=== PATIENT | female | born 1970 | race Caucasian/White ===

== ENCOUNTER 2020-08-15 15:24 | Outpatient (CLI) | payer BC, SELFPAY ==
--- NOTE | ~2020-08-15 | MM_ITS ---
EXAMINATION: MM screening [facility] BI w kristie HISTORY: Screening mammogram TECHNIQUE: Craniocaudal and mediolateral oblique 3-D tomosynthesis images were obtained and synthetic 2-D images were generated. CAD analysis was submitted and interpreted. COMPARISON: 01/14/2018, 12/16/2013, 10/07/2012 BREAST PARENCHYMAL COMPOSITION: The breasts are heterogeneously dense, which may obscure small masses . FINDINGS: There is no evidence of suspicious mass, calcification, or architectural distortion to sugg est malignancy in either breast. There has been no suspicious interval change. IMPRESSION: 1. No mammographic evidence of malignancy. 2. Recommend routine screening mammography in one year. BI-RADS Category 1: Negative Reviewed, dictated and finalized at location A.
== END 2020-08-15 15:25 | disposition home or self-care (01) ==
PROVIDERS: PCP Family Medicine; Visit Provider Nurse Practitioner Family
DX: Z12.31 Encounter for screening mammogram for malignant neoplasm of breast (principal)
CPT/HCPCS: 77063; 77067

== ENCOUNTER 2021-11-26 08:31 | Outpatient (CLI) | payer BC, SELFPAY ==
--- NOTE | ~2021-11-26 | XR_ITS ---
EXAMINATION: XR scoliosis survey DATE: 11/26/2021 09:38 INDICATION: Scoliosis, unspecified. TECHNIQUE: Frontal and lateral views of the entire spine standing were obtained. COMPARISON: None. FINDINGS: Right femoral head stands 4 mm higher than the left. There are 12 pairs of ribs. There are 5 nonrib-bearing lumbar segments. There is 34 degrees dextroscoliosis from T4 to T9 by the Echols metho d. There is 32 degrees levoscoliosis from T9 to L3. There is moderate cervical spondylosis and mild t horacic and lumbar spondylosis. IMPRESSION: 1. Scoliosis. Reviewed, dictated and finalized at location E. TION MECHANIC IMPRESSION: 1. Scoliosis.
--- NOTE | ~2021-11-26 | XR_ITS ---
EXAMINATION: XR_RIBSBI_CR DATE: 11/26/2021 09:38 INDICATION: Pleurodynia. TECHNIQUE: Frontal and lateral views of the chest, 2 views of the right ribs on 3 radiographs, and 2 views of the left ribs and 3 radiographs were obtained. COMPARISON: CT abdomen and pelvis 08/06/2013 FINDINGS: CHEST TWO VIEWS: There is mild scarring at the lung apices. No pleural effusion or pneumothorax. The heart size is normal. BILATERAL RIBS: There is no rib fracture. IMPRESSION: 1. No rib fracture. 2. Mild scarring at the lung apices. Reviewed, dictated and finalized at location E. IFIER
[2021-11-26 09:13] LABS: Anion Gap 6 mmol/L (8-16); Blood Urea Nitrogen 19 mg/dL (7-17); Calcium 9.4 mg/dL (8.4-10.2); Carbon Dioxide 25 mmol/L (22-30); Chloride 103 mmol/L (98-107); Estimated Glomerular Filt Rate 58; Glucose 116 mg/dL (65-110); Potassium 4.3 mmol/L (3.4-5.0); Sodium 134 mmol/L (137-145)
== END 2021-11-26 08:32 | disposition home or self-care (01) ==
PROVIDERS: PCP Family Medicine; Visit Provider Nurse Practitioner Family
DX: N28.9 Disorder of kidney and ureter, unspecified (principal); E03.9 Hypothyroidism, unspecified; R07.81 Pleurodynia; M41.9 Scoliosis, unspecified; M41.80 Other forms of scoliosis, site unspecified; R91.8 Other nonspecific abnormal finding of lung field
CPT/HCPCS: 36415; 71110; 72082; 80048; 84439; 84443

== ENCOUNTER 2022-01-16 08:17 | Outpatient (CLI) | payer BC, SELFPAY ==
[2022-01-16 08:51] LABS: Anion Gap 7 mmol/L (8-16); Blood Urea Nitrogen 14 mg/dL (7-17); Carbon Dioxide 30 mmol/L (22-30); Chloride 101 mmol/L (98-107); Estimated Glomerular Filt Rate > 60; Glucose 115 mg/dL (65-110); Sodium 138 mmol/L (137-145)
[2022-01-16 09:36] LABS: Free T4 Free Thyroxine 0.92 ng/mL (0.78-2.19)
== END 2022-01-16 08:18 | disposition home or self-care (01) ==
LOC: ANHLAB 08:18
PROVIDERS: PCP Family Medicine; Visit Provider Nurse Practitioner Family
DX: N28.9 Disorder of kidney and ureter, unspecified (principal); R73.09 Other abnormal glucose; E03.9 Hypothyroidism, unspecified
CPT/HCPCS: 36415; 80048; 84439; 84443

== ENCOUNTER 2022-01-18 15:16 | Outpatient (CLI) | payer BC, SELFPAY | END 2022-01-18 15:17 | disposition home or self-care (01) | LOC: ANHLAB 15:17 | PROVIDERS: PCP Family Medicine; Visit Provider Nurse Practitioner Family | DX: E03.9 Hypothyroidism, unspecified (principal) | CPT/HCPCS: 36415; 84443 ==

== ENCOUNTER 2022-08-16 08:26 | Outpatient (CLI) | payer OTHER, SELFPAY ==
[2022-08-16 09:05] LABS: Cholesterol 294 mg/dL (0-200); HDL Direct 53 mg/dL; Triglycerides 323 mg/dL (<150)
[2022-08-16 09:15] LABS: LDL Cholesterol Direct 182 mg/dL
[2022-08-16 10:04] LABS: Free T4 Free Thyroxine 0.88 ng/mL (0.78-2.19)
== END 2022-08-16 08:27 | disposition home or self-care (01) ==
PROVIDERS: Nurse Practitioner Family; PCP Family Medicine; Visit Provider Physician Assistant Medical
DX: E03.9 Hypothyroidism, unspecified (principal); Z72.0 Tobacco use; Z82.49 Family history of ischemic heart disease and other diseases of the circulatory system
CPT/HCPCS: 36415; 80061; 84439; 84443